=== PATIENT | male | born 1960 | race Caucasian/White ===

== ENCOUNTER 2024-10-02 13:30 | Inpatient (IN) | payer OTHER ==
--- NOTE | 2024-10-02 14:37 | ED ---
General Adult HPI - General Chief complaint: Shortness of Breath Stated complaint: SOB Time Seen by Provider: 10/02/24 14:04 Source: EMS Mode of arrival: EMS - History of Present Illness Initial comments: 64-year-old male presenting with chief complaint of cough and difficulty breat dora. Ongoing for the last 5 days. Patient comes from [facility], receiving treatment for alcohol use disorder last drink was on September 15. Patient reports that quite a few people at the facility are getting sick recently. He is a pack per day smoker. He denies chest pain, lower extremity swelling, nausea, vomiting, abdominal pain. Patient was hypoxic on room air started on 3 L nasal cannula, he does not normally wear oxygen. He denies any history of COPD or asthma. - Related Data Home Medications Medication Instructions Recorded Confirmed Acetaminophen [Tylenol] 650 mg PO Q4H PRN MDD 2,600mg 10/02/24 10/02/24 Calcium Phos/D3/Magnesium/Zinc 1 tab PO TID PRN 10/02/24 10/02/24 [Zhkhugf-Igr-Gdxd-Vitamin D3] Chlorpheniramine Maleate 4 mg PO Q4H PRN 10/02/24 10/02/24 [Chlor-Trimeton] Docusate [Colace] 100 mg PO BID PRN 10/02/24 10/02/24 Folic Acid 1 mg PO DAILY PRN 10/02/24 10/02/24 Ibuprofen [Motrin Ib] 600 mg PO Q6H PRN 10/02/24 10/02/24 Loperamide HCl [Imodium A-D] 4 mg PO QID PRN MDD 16mg 10/02/24 10/02/24 Magnesium Hydroxide [Milk of 2,400 mg PO BID PRN 10/02/24 10/02/24 Magnesia] Melatonin 10 mg PO HS 10/02/24 10/02/24 Mirtazapine 15 mg PO HS 10/02/24 10/02/24 Multivitamins, Thera [Multivitamin 1 tab PO DAILY 10/02/24 10/02/24 (formulary)] Mylanta Regular Strength 30 ml PO Q4H PRN 10/02/24 10/02/24 Thiamine HCl [Vitamin B-1] 100 mg PO DAILY 10/02/24 10/02/24 busPIRone HCl [Buspar] 10 mg PO TID 10/02/24 10/02/24 cloNIDine HCL [Catapres] 0.1 - 0.3 mg PO Q4H PRN 10/02/24 10/02/24 guaiFENesin SYRUP 100MG/5ML 200 mg PO Q4H PRN 10/02/24 10/02/24 [Robitussin] ondansetron HCL [Zofran] 8 mg PO Q6H PRN 10/02/24 10/02/24 Allergies Allergy/AdvReac Type Severity Reaction Status Date / Time No Known Allergies Allergy Verified 10/02/24 17:27 Review of Systems ROS Statement: Those systems with pertinent positive or pertinent negative responses have been documented in the HPI. ROS Other: All systems not noted in ROS Statement are negative. Past Medical History Past Surgical History: Bladder Surgery Additional Past Surgical History / Comment(s): Bladder Cancer 2019, hernia repair (inguinal) surgery long ago. Past Psychological History: No Psychological Hx Reported Smoking Status: Current every day smoker Past Alcohol Use History: Heavy General Exam Limitations: no limitations General appearance: alert, in no apparent distress Head exam: Present: atraumatic, normocephalic, normal inspection Eye exam: Present: normal appearance, EOMI Neck exam: Present: normal inspection. Absent: meningismus Respiratory exam: Present: wheezes. Absent: respiratory distress, rales, rhonchi, stridor Cardiovascular Exam: Present: regular rate, normal rhythm, normal heart sounds. Absent: systolic murmur, diastolic murmur, rubs, gallop, clicks Extremities exam: Absent: pedal edema Neurological exam: Present: alert, oriented X3 Psychiatric exam: Present: normal affect, normal mood Skin exam: Present: warm, dry, normal color Course Vital Signs 10/02/24 10/02/24 10/02/24 13:51 14:00 15:03 Temperature 99.1 F Pulse Rate 68 Respiratory 20 18 Rate Blood Pressure 128/72 O2 Sat by Pulse 86 L 91 L Oximetry 10/02/24 10/02/24 10/02/24 15:51 16:01 16:05 Temperature 98.5 F Pulse Rate 72 72 69 Respiratory 19 Rate Blood Pressure 144/71 O2 Sat by Pulse 91 L Oximetry 10/02/24 10/02/24 18:40 22:21 Temperature 97.8 F Pulse Rate 87 98 Respiratory 18 18 Rate Blood Pressure 132/81 144/95 O2 Sat by Pulse 92 L 98 Oximetry Medical Decision Making - Medical Decision Making Was pt. sent in by a medical professional or institution ([facility]ynum, [facility], urgent care, hospital, or [facility]...) When possible be specific @ -No Did you speak to anyone other than the patient for history (EMS, parent, family, police, friend...)? What history was obtained from this source @ -No Did you review nursing and triage notes (agree or disagree)? Why? @ -I reviewed and agree with nursing and triage notes Were old charts reviewed (outside hosp., previous admission, EMS record, old EKG, old radiological studies, urgent care reports/EKG's, [facility] records)? Report findings @ -No old charts were reviewed Differential Diagnosis (chest pain, altered mental status, abdominal pain women, abdominal pain men, vaginal bleeding, weakness, fever, dyspnea, syncope, headache, dizziness, GI bleed, back pain, seizure, CVA, palpatations, mental health, musculoskeletal)? @ -MDM Differential Dyspnea: Coronary syndrome, arrhythmia, tamponade, asthma, COPD, pulmonary embolism, pneumonia, pneumothorax, pulmonary effusion, anaphylaxis, diabetic ketoacidosis, flailed chest, pulmonary contusion, diaphragmatic rupture, anemia, neuromuscular… this is not meant to be an all-inclusive list. EKG interpreted by me (3pts min.). @ -EKG shows sinus rhythm with sinus arrhythmia ventricular rate 72. AZ interval 155. QRS 90. QT 405. QTc 430 X-rays interpreted by me (1pt min.). @ -Chest x-ray read shows reticular nodular infiltrates within the infrahilar regions bilaterally may reflect developing pneumonia. Correlate clinically. CT interpreted by me (1pt min.). @ -None done U/S interpreted by me (1pt. min.). @ -None done What testing was considered but not performed or refused? (CT, X-rays, U/S, labs)? Why? @ -None What meds were considered but not given or refused? Why? @ -None Did you discuss the management of the patient with other professionals (professionals i.e. CHRISTIANO Bynum, [facility], lab, RT, psych nurse, social worker psychiatric, court commissioner, teacher, juvenile correctional officer, skilled nursing case manager)? Give summary @ -Spoke with the [facility] provider on-call who accepted admission Was smoking cessation discussed for >3mins.? @ -No Was critical care preformed (if so, how long)? @ -No Were there social determinants of health that impacted care today? How? (Homelessness, low income, unemployed, alcoholism, drug addiction, transportation, low edu. Level, literacy, decrease access to med. care, shelter, rehab)? @ -No Was there de-escalation of care discussed even if they declined (Discuss DNR or withdrawal of care, Hospice)? DNR status @ -No What co-morbidities impacted this encounter? (DM, HTN, Smoking, COPD, CAD, Cancer, CVA, ARF, Chemo, Hep., AIDS, mental health diagnosis, sleep apnea, mor bid obesity)? @ smoking Was patient admitted / discharged? Hospital course, mention meds given and route, prescriptions, significant lab abnormalities, going to OR and other pertinent info. @ -64-year-old male presenting from [facility] with chief complaint of difficulty breathing. Patient is a pack per day smoker. Currently receiving treatment for alcohol use disorder. On exam diffuse wheezes are heard on auscultation. Patient is hypoxic on room air and placed on 3 L via nasal cannula. Lab work shows no leukocytosis or anemia. Sodium 128. Chest x-ray positive for pneumonia. Troponin 0.038. Patient is having no chest pain. Likely secondary to infection and hypoxia. Patient is treated with azithromycin and Rocephin. Patient was also treated with DuoNebs and Solu-Medrol. Patient is educated on today's findings. He will require admission for pneumonia and COPD exacerbation. Follow-up with PCP. Report back to ER with any new or worsening symptoms. Discussed return parameters and answered all questions. Patient conveyed verbal understanding and agreed to the plan. I discussed this case in detail with my attending Dr. Yu Undiagnosed new problem with uncertain prognosis? @ -No Drug Therapy requiring intensive monitoring for toxicity (Heparin, Nitro, Insulin, Cardizem)? @ -No Were any procedures done? @ -No Diagnosis/symptom? @ -Pneumonia, COPD Acute, or Chronic, or Acute on Chronic? @ -Acute Uncomplicated (without systemic symptoms) or Complicated (systemic symptoms)? @ -Complicated Side effects of treatment? @ -No Exacerbation, Progression, or Severe Exacerbation? @ -No Poses a threat to life or bodily function? How? (Chest pain, USA, GA, pneumonia, PE, COPD, DKA, ARF, appy, cholecystitis, CVA, Diverticulitis, Homicidal, Suicidal, threat to staff... and all critical care pts) @ -Yes - Lab Data Result diagrams: 10/05/24 04:16 10/05/24 04:16 Lab Results 10/02/24 10/02/24 10/02/24 Range/Units 14:56 14:56 14:56 WBC 9.05 (4.50-10.00) 10*3/uL RBC 3.79 L (4.40-5.60) 10*6/uL Hgb 13.1 (13.0-17.0) g/dL Hct 37.4 L (39.6-50.0) % MCV 98.7 H (80.0-97.0) fL MCH 34.6 H (27.0-32.0) pg MCHC 35.0 (32.0-37.0) g/dL Plt Count [facility] MPV 8.7 L (9.5-12.2) fL Immature Gran % (Auto) 0.4 % Neutrophils % (Manual) 67 % Lymphocytes % (Manual) 26 % Monocytes % (Manual) 7 % Immature Gran # 0.04 (0.00-0.04) 10*3/uL Neutrophils # (Manual) 6.06 (1.3-7.7) k/uL Lymphocytes # (Manual) 2.35 (1.0-4.8) k/uL Monocytes # (Manual) 0.63 (0-1.0) k/uL Nucleated RBCs 0 (0-0) /100 WBC Manual Slide Review Performed Toxic Vacuolation Present PT 10.5 (10.0-12.5) sec INR 0.9 (<1.2) APTT 26.8 (22.0-30.0) sec Sodium 128 L (137-145) mmol/L Potassium 4.1 (3.5-5.1) mmol/L Chloride 93 L (98-107) mmol/L Carbon Dioxide 28 (22-30) mmol/L Anion Gap 7 mmol/L BUN 16 (9-20) mg/dL Creatinine 0.70 (0.66-1.25) mg/dL Est GFR (CKD-EPI)AfAm >90 (>60 ml/min/1.73 sqM) Est GFR (CKD-EPI)NonAf >90 (>60 ml/min/1.73 sqM) Glucose 108 H (74-99) mg/dL Calcium 8.6 (8.4-10.2) mg/dL Magnesium 2.0 (1.6-2.3) mg/dL Total Bilirubin 0.6 (0.2-1.3) mg/dL AST 35 (17-59) U/L ALT 36 (4-49) U/L Alkaline Phosphatase 81 (38-126) U/L Troponin I (0.000-0.034) ng/mL Total Protein 6.1 L (6.3-8.2) g/dL Albumin 3.5 (3.5-5.0) g/dL 10/02/24 10/02/24 Range/Units 14:56 17:53 WBC (4.50-10.00) 10*3/uL RBC (4.40-5.60) 10*6/uL Hgb (13.0-17.0) g/dL Hct (39.6-50.0) % MCV (80.0-97.0) fL MCH (27.0-32.0) pg MCHC (32.0-37.0) g/dL Plt Count MPV (9.5-12.2) fL Immature Gran % (Auto) % Neutrophils % (Manual) % Lymphocytes % (Manual) % Monocytes % (Manual) % Immature Gran # (0.00-0.04) 10*3/uL Neutrophils # (Manual) (1.3-7.7) k/uL Lymphocytes # (Manual) (1.0-4.8) k/uL Monocytes # (Manual) (0-1.0) k/uL Nucleated RBCs (0-0) /100 WBC Manual Slide Review Toxic Vacuolation PT (10.0-12.5) sec INR (<1.2) APTT (22.0-30.0) sec Sodium (137-145) mmol/L Potassium (3.5-5.1) mmol/L Chloride (98-107) mmol/L Carbon Dioxide (22-30) mmol/L Anion Gap mmol/L BUN (9-20) mg/dL Creatinine (0.66-1.25) mg/dL Est GFR (CKD-EPI)AfAm (>60 ml/min/1.73 sqM) Est GFR (CKD-EPI)NonAf (>60 ml/min/1.73 sqM) Glucose (74-99) mg/dL Calcium (8.4-10.2) mg/dL Magnesium (1.6-2.3) mg/dL Total Bilirubin (0.2-1.3) mg/dL AST (17-59) U/L ALT (4-49) U/L Alkaline Phosphatase (38-126) U/L Troponin I 0.038 H* 0.023 (0.000-0.034) ng/mL Total Protein (6.3-8.2) g/dL Albumin (3.5-5.0) g/dL Disposition Clinical Impression: Community acquired pneumonia Disposition: ADMITTED IP TO THIS [facility] Condition: Fair Time of Disposition: 16:34
[2024-10-02 15:08] LABS: HCT 37.4 % (39.6-50.0); HGB 13.1 g/dL (13.0-17.0); MCH 34.6 pg (27.0-32.0); MCV 98.7 fL (80.0-97.0); Mean Platelet Volume 8.7 fL (9.5-12.2); RBC 3.79 10*6/uL (4.40-5.60); RDW 13.7 % (11.5-14.5); WBC 9.05 10*3/uL (4.50-10.00)
--- NOTE | 2024-10-02 15:17 | XR ---
EXAMINATION TYPE: XR chest 2V DATE OF EXAM: 10/02/2024 3:12 PM COMPARISON: None. CLINICAL INDICATION: Male, 64 years old with history of difficulty breathing: Shortness of breath TECHNIQUE: XR chest 2V views of the chest are obtained. FINDINGS: Scattered senescent parenchymal changes noted. Hyperinflation compatible with COPD. Reticular nodular infiltrates within the infrahilar regions bilaterally may reflect developing pneumo latanya. Correlate clinically. Heart size is stable. Mediastinal structures are stable and grossly unremarkable. No evidence for hilar prominence. Degenerative changes dorsal spine. Nonacute right-sided rib deformities. IMPRESSION: 1. Reticular nodular infiltrates within the infrahilar regions bilaterally may reflect developing pne umonia. Correlate clinically. [facility], , 10/02/2024 3:14 PM
[2024-10-02 15:24] LABS: ALT 36 U/L (4-49); AST 35 U/L (17-59); African American GFR (CKD) >90 (>60 ml/min/1.73 sqM); Albumin 3.5 g/dL (3.5-5.0); Alkaline Phosphatase 81 U/L (38-126); Anion Gap 7 mmol/L; Blood Urea Nitrogen 16 mg/dL (9-20); Calcium 8.6 mg/dL (8.4-10.2); Carbon Dioxide 28 mmol/L (22-30); Chloride 93 mmol/L (98-107); Glucose 108 mg/dL (74-99); Non-African American GFR(CKD) >90 (>60 ml/min/1.73 sqM); Potassium 4.1 mmol/L (3.5-5.1); Sodium 128 mmol/L (137-145); Total Bilirubin 0.6 mg/dL (0.2-1.3); Total Protein 6.1 g/dL (6.3-8.2)
[2024-10-02 15:39] LABS: INR 0.9 (<1.2); Prothrombin Time 10.5 sec (10.0-12.5)
[2024-10-02 15:40] LABS: Partial Thromboplastin Time 26.8 sec (22.0-30.0)
[2024-10-02] MEDS: methylPREDNISolone SOD SUCCI 125 MG/2 ML VIAL IV STA (15:46)
[2024-10-02] MEDS: cefTRIAXone IN SWFI 1,000 MG/10 ML SYRINGE IVP STA (15:46)
[2024-10-02] MEDS: AZITHROMYCIN 500 MG in SODIUM CHLORIDE 0.9% 250 ML IVPB STA (15:47)
[2024-10-02 15:51] LABS: Lymphocytes # (M) 2.35 k/uL (1.0-4.8); Monocytes # (M) 0.63 k/uL (0-1.0); Neutrophils # (M) 6.06 k/uL (1.3-7.7); Neutrophils % (M) 67 %; Nucleated Red Blood Cells 0 /100 WBC (0-0); Total Cells Counted 100; Toxic Vacuolation Present
[2024-10-02] MEDS: IPRATROPIUM-ALBUTEROL 3 ML NEB INHALATION STA (15:51)
[2024-10-02] MEDS ORDERED: PNEUMONIA PROTOCOL UTILIZED 1 EACH MISC PO PRN (16:27)
[2024-10-02] MEDS ORDERED: ACETAMINOPHEN TAB 325 MG TAB PO PRN (16:27)
[2024-10-02] MEDS: IPRATROPIUM-ALBUTEROL 3 ML NEB INHALATION SCH (21:21)
[2024-10-03] MEDS: IPRATROPIUM-ALBUTEROL 3 ML NEB INHALATION PRN (05:31)
[2024-10-03] MEDS ORDERED: predniSONE 20 MG TAB PO SCH (09:00)
[2024-10-03] MEDS: AZITHROMYCIN 500 MG TAB PO SCH (09:39)
[2024-10-03] MEDS: methylPREDNISolone 4 MG TAB TAPER PO SCH (09:39)
[2024-10-03] MEDS: cefTRIAXone 2 GM in DEXTROSE 5% IN WATER 50 ML IVPB SCH (09:40)
[2024-10-03] MEDS ORDERED: FOLIC ACID 1 MG TAB PO PRN (10:59)
[2024-10-03 12:10] LABS: Influenza B Detected (Not Detectd); RSV Not Detected (Not Detectd)
[2024-10-03 12:11] LABS: Influenza A Not Detected (Not Detectd)
--- NOTE | 2024-10-03 12:23 | P.CNPUL ---
History of Present Illness Consult date: 10/03/24 Requesting physician: Joseph Morris Reason for consult: dyspnea, COPD, pneumonia, abnormal CXR/CT Chief complaint: Shortness of breath, cough, congestion History of present illness: This is a 64-year-old male patient who resides in [place] but was staying at [facility] for alcohol abuse. He had been there about 1-1/2 weeks until he developed increasing shortness of breath cough and congestion and was brought into the emergency room yesterday. He does have a 50-year pack per day smoking history. He also has a history of bladder cancer status post surgery. X-ray reveals reticular nodular infiltrates within the infrahilar regions bilaterally possibly reflecting pneumonia. White count 9.0. Hemoglobin 13.1. Sodium 128. Potassium 4.1. Bicarb 28. BUN 16. Creatinine 0.7. Viral screen positive for influenza B. He is seen today in consultation on the regular medical floor. He is currently sitting up in bed. Awake and alert in no acute distress. Maintaining O2 saturations in the 90s on room air. He has been afebrile. Hemodynamically stable. He does have a loose congested cough. Denies any nausea vomiting or diarrhea. Review of Systems REVIEW OF SYSTEMS: CONSTITUTIONAL: Denies any recent significant weight loss or weight gain. EYES: Denies change in vision. EARS, NOSE, MOUTH, THROAT: Denies headaches, denies sore throat. CARDIOVASCULAR: Denies chest pain, palpitations or syncopal episodes. RESPIRATORY: Positive for shortness of breath, cough, congestion no hemoptysis. GASTROINTESTINAL: Denies change in appetite, denies abdominal pain GENITOURINARY: Denies hematuria, denies infections. MUSKULOSKELETAL: Denies pain, denies swelling. INTEGUMENTARY: Denies rash, denies eczema. NEUROLOGICAL: Denies recent memory loss, no recent seizure activity. PSYCHIATRIC: Denies anxiety, denies depression. HEMATOLOGIC/LYMPHATIC: Denies anemia, denies enlarged lymph nodes. Past Medical History Past Medical History: Cancer Additional Past Medical History / Comment(s): Bladder CA History of Any Multi-Drug Resistant Organisms: None Reported Past Surgical History: Bladder Surgery Additional Past Surgical History / Comment(s): Bladder Cancer 2019, hernia repair (inguinal) surgery long ago. Past Anesthesia/Blood Transfusion Reactions: No Reported Reaction Past Psychological History: No Psychological Hx Reported Smoking Status: Current every day smoker Past Alcohol Use History: Heavy Past Drug Use History: Marijuana Additional Drug Use History / Comment(s): Patient states he will occasionally use a Marijuana Edible. Medications and Allergies Home Medications Medication Instructions Recorded Confirmed Type Acetaminophen [Tylenol] 650 mg PO Q4H PRN MDD 2,600mg 10/02/24 10/02/24 History Calcium Phos/D3/Magnesium/Zinc 1 tab PO TID PRN 10/02/24 10/02/24 History [Wyduymp-Poh-Xftx-Vitamin D3] Chlorpheniramine Maleate 4 mg PO Q4H PRN 10/02/24 10/02/24 History [Chlor-Trimeton] Docusate [Colace] 100 mg PO BID PRN 10/02/24 10/02/24 History Folic Acid 1 mg PO DAILY PRN 10/02/24 10/02/24 History Ibuprofen [Motrin Ib] 600 mg PO Q6H PRN 10/02/24 10/02/24 History Loperamide HCl [Imodium A-D] 4 mg PO QID PRN MDD 16mg 10/02/24 10/02/24 History Magnesium Hydroxide [Milk of 2,400 mg PO BID PRN 10/02/24 10/02/24 History Magnesia] Melatonin 10 mg PO HS 10/02/24 10/02/24 History Mirtazapine 15 mg PO HS 10/02/24 10/02/24 History Multivitamins, Thera [Multivitamin 1 tab PO DAILY 10/02/24 10/02/24 History (formulary)] Mylanta Regular Strength 30 ml PO Q4H PRN 10/02/24 10/02/24 History Thiamine HCl [Vitamin B-1] 100 mg PO DAILY 10/02/24 10/02/24 History busPIRone HCl [Buspar] 10 mg PO TID 10/02/24 10/02/24 History cloNIDine HCL [Catapres] 0.1 - 0.3 mg PO Q4H PRN 10/02/24 10/02/24 History guaiFENesin SYRUP 100MG/5ML 200 mg PO Q4H PRN 10/02/24 10/02/24 History [Robitussin] ondansetron HCL [Zofran] 8 mg PO Q6H PRN 10/02/24 10/02/24 History Allergies Allergy/AdvReac Type Severity Reaction Status Date / Time No Known Allergies Allergy Verified 10/02/24 17:27 Physical Exam Vitals: Vital Signs Temp Pulse Pulse Resp BP BP Pulse Ox 10/03/24 09:01 75 10/03/24 08:51 73 10/03/24 07:00 98.2 F 72 16 145/71 94 L 10/03/24 05:39 74 10/03/24 05:32 66 10/03/24 01:14 97.6 F 66 18 125/71 91 L 10/02/24 22:45 98.4 F 84 19 159/93 92 L 10/02/24 22:21 97.8 F 98 18 144/95 98 10/02/24 18:40 87 18 132/81 92 L 10/02/24 16:05 98.5 F 69 19 144/71 91 L 10/02/24 16:01 72 10/02/24 15:51 72 10/02/24 15:03 68 18 128/72 10/02/24 14:00 91 L 10/02/24 13:51 99.1 F 20 86 L Intake and Output 10/02/24 10/03/24 10/03/24 22:59 06:59 14:59 Intake Total 118 Balance 118 Intake: Oral 118 Other: # Voids 2 Weight 79.379 kg GENERAL EXAM: Alert, 64-year-old male, on room air oxygen, comfortable in no apparent distress. HEAD: Normocephalic. EYES: Normal reaction of pupils, equal size. NOSE: Clear with pink turbinates. THROAT: No erythema or exudates. NECK: No masses, no JVD. CHEST: No chest wall deformity. LUNGS: Equal air entry with few scattered rhonchi, end expiratory wheeze, diminished. CVS: S1 and S2 normal with no audible murmur, regular rhythm. ABDOMEN: No hepatosplenomegaly, normal bowel sounds, no guarding or rigidity. SPINE: No scoliosis or deformity SKIN: No rashes CENTRAL NERVOUS SYSTEM: No focal deficits, tone is normal in all 4 extremities. EXTREMITIES: There is no peripheral edema. No clubbing, no cyanosis. Peripheral pulses are intact. Results - Laboratory Findings CBC and BMP: 10/02/24 14:56 10/02/24 14:56 PT/INR, D-dimer PT 10.5 sec (10.0-12.5) 10/02/24 14:56 INR 0.9 (<1.2) 10/02/24 14:56 Abnormal lab findings: Abnormal Labs 10/02/24 10/02/24 10/02/24 14:56 14:56 14:56 RBC 3.79 L Hct 37.4 L MCV 98.7 H MCH 34.6 H MPV 8.7 L Sodium 128 L Chloride 93 L Glucose 108 H Troponin I 0.038 H* C-Reactive Protein Total Protein 6.1 L Influenza Type B (PCR) 10/03/24 10/03/24 11:08 11:16 RBC Hct MCV MCH MPV Sodium Chloride Glucose Troponin I C-Reactive Protein 25.8 H Total Protein Influenza Type B (PCR) Detected A - Diagnostic Findings Chest x-ray: image reviewed Assessment and Plan Assessment: Acute exacerbation of chronic obstructive pulmonary disease complicated by influenza B Acute influenza B infection Hyponatremia Chronic and ongoing tobacco dependence of 50 years Alcohol abuse, currently residing in [facility], last drink was September 15, 2024 History of bladder cancer status post surgery in 2018 Plan: The patient was seen and evaluated Chest x-ray, labs and medications reviewed Check a procalcitonin Continue ceftriaxone and azithromycin for now Initiate on Tamiflu Initiate Symbicort Initiate a Medrol Dosepak Continue DuoNeb inhalations Continue the CIWA protocol Ativan as needed Plan is to return to [place] post discharge We will continue to follow and make further recommendations based on his clinical status I have personally seen and examined the patient, performed the documentation and the assessment and plan as written. Number of minutes spent on the visit: 20 Dictation was produced using [employer] dictation software. Please excuse any grammatical, word or spelling errors. Time with Patient: Greater than 30
[2024-10-03] MEDS: OSELTAMIVIR 75 MG CAP PO SCH (13:21)
[2024-10-03] MEDS: LORazepam 1 MG TAB PO PRN (13:23)
--- NOTE | 2024-10-03 13:59 | P.HPIM ---
History of Present Illness H&P Date: 10/03/24 History of present illness; patient 64-year-old gentleman with past medical history For Alcohol Abuse Who presented to the ER from [place] for shortness of breath. Patient stated he has been feeling short of breath for the last 5 days. Patient also complaining of cough is productive. Denies any chest pain. There is no complaint of fever or chills. Patient stated a lot of people at [place] have been sick recently. Denies any nausea or vomiting. There is no complaint of orthopnea or PND. Denies anyabdominal pain. Patient denies any complaint of dizziness. There is no complaint of headache. Because of this shortness of breath and cough, patient came to the ER Initial lab work done in the ER showed 9.05, hemoglobin 13.1, sodium 128, potassium 4.1, BUN 16, creatinine 0.70, glucose 108, troponin 0.038 EKG done in the ER showed heart rate of72 , no ST segment elevation or dep ression seen, no T-wave inversions seen. Chest x-ray done in the ER showed reticular nodular infiltrates within the infrahilar regions bilaterally may reflect developing pneumonia Patient admitted to internal medicine service REVIEW OF SYSTEMS: CONSTITUTIONAL: No fever, no malaise, no fatigue. HEENT: No recent visual problems or hearing problems. Denied any sore throat. CARDIOVASCULAR: As mentioned above. PULMONARY: As mentioned above GASTROINTESTINAL: No diarrhea, no nausea, no vomiting, no abdominal pain. NEUROLOGICAL: No headaches, no weakness, no numbness. HEMATOLOGICAL: Denies any bleeding or petechiae. GENITOURINARY: Denies any burning micturition, frequency, or urgency. MUSCULOSKELETAL/RHEUMATOLOGICAL: Denies any joint pain, swelling, or any muscle pain. ENDOCRINE: Denies any polyuria or polydipsia. The rest of the 14-point review of systems is negative. PHYSICAL EXAMINATION: GENERAL: The patient is alert and oriented x3, chronically ill looking HEENT: Pupils are round and equally reacting to light. EOMI. No scleral icterus. No conjunctival pallor. Normocephalic, atraumatic. No pharyngeal erythema. No thyromegaly. CARDIOVASCULAR: S1 and S2 present. No murmurs, rubs, or gallops. PULMONARY: Diminished breath sounds at the bases, no wheezing or crackles. ABDOMEN: Soft, nontender, nondistended, normoactive bowel sounds. No palpable organomegaly. MUSCULOSKELETAL: No joint swelling or deformity. EXTREMITIES: No cyanosis, clubbing, or pedal edema. NEUROLOGICAL: Gross neurological examination did not reveal any focal deficits. SKIN: No rashes. Assessment and plan Acute hypoxic respiratory failure Bacterial pneumonia Hyponatremia History of alcohol abuse Monitor vital signs Monitor CBC Monitor CMP Order blood cultures Ordered IV Rocephin azithromycin Ordered breathing treatments Ordered Pro-Jimmy Resume home meds Consult pulmonary Labs and medication were reviewed.. Continue same treatment. Continue with symptomatic treatment. Resume home medication. Monitor labs and vitals. DVT and GI prophylaxis. Further recommendations as per clinical course of the patient Dictation was produced using [employer] dictation software. please excuse any g rammatical, word or spelling errors. Past Medical History Past Medical History: Cancer Additional Past Medical History / Comment(s): Bladder CA History of Any Multi-Drug Resistant Organisms: None Reported Past Surgical History: Bladder Surgery Additional Past Surgical History / Comment(s): Bladder Cancer 2019, hernia repair (inguinal) surgery long ago. Past Anesthesia/Blood Transfusion Reactions: No Reported Reaction Past Psychological History: No Psychological Hx Reported Smoking Status: Current every day smoker Past Alcohol Use History: Heavy Past Drug Use History: Marijuana Additional Drug Use History / Comment(s): Patient states he will occasionally use a Marijuana Edible. Medications and Allergies Home Medications Medication Instructions Recorded Confirmed Type Acetaminophen [Tylenol] 650 mg PO Q4H PRN MDD 2,600mg 10/02/24 10/02/24 History Calcium Phos/D3/Magnesium/Zinc 1 tab PO TID PRN 10/02/24 10/02/24 History [Rtzgzvu-Bbr-Bjyk-Vitamin D3] Chlorpheniramine Maleate 4 mg PO Q4H PRN 10/02/24 10/02/24 History [Chlor-Trimeton] Docusate [Colace] 100 mg PO BID PRN 10/02/24 10/02/24 History Folic Acid 1 mg PO DAILY PRN 10/02/24 10/02/24 History Ibuprofen [Motrin Ib] 600 mg PO Q6H PRN 10/02/24 10/02/24 History Loperamide HCl [Imodium A-D] 4 mg PO QID PRN MDD 16mg 10/02/24 10/02/24 History Magnesium Hydroxide [Milk of 2,400 mg PO BID PRN 10/02/24 10/02/24 History Magnesia] Melatonin 10 mg PO HS 10/02/24 10/02/24 History Mirtazapine 15 mg PO HS 10/02/24 10/02/24 History Multivitamins, Thera [Multivitamin 1 tab PO DAILY 10/02/24 10/02/24 History (formulary)] Mylanta Regular Strength 30 ml PO Q4H PRN 10/02/24 10/02/24 History Thiamine HCl [Vitamin B-1] 100 mg PO DAILY 10/02/24 10/02/24 History busPIRone HCl [Buspar] 10 mg PO TID 10/02/24 10/02/24 History cloNIDine HCL [Catapres] 0.1 - 0.3 mg PO Q4H PRN 10/02/24 10/02/24 History guaiFENesin SYRUP 100MG/5ML 200 mg PO Q4H PRN 10/02/24 10/02/24 History [Robitussin] ondansetron HCL [Zofran] 8 mg PO Q6H PRN 10/02/24 10/02/24 History Allergies Allergy/AdvReac Type Severity Reaction Status Date / Time No Known Allergies Allergy Verified 10/02/24 17:27 Physical Exam Vitals: Vital Signs Temp Pulse Pulse Resp BP BP Pulse Ox 10/03/24 09:01 75 10/03/24 08:51 73 10/03/24 07:00 98.2 F 72 16 145/71 94 L 10/03/24 05:39 74 10/03/24 05:32 66 10/03/24 01:14 97.6 F 66 18 125/71 91 L 10/02/24 22:45 98.4 F 84 19 159/93 92 L 10/02/24 22:21 97.8 F 98 18 144/95 98 10/02/24 18:40 87 18 132/81 92 L 10/02/24 16:05 98.5 F 69 19 144/71 91 L 10/02/24 16:01 72 10/02/24 15:51 72 10/02/24 15:03 68 18 128/72 10/02/24 14:00 91 L 10/02/24 13:51 99.1 F 20 86 L Intake and Output 10/02/24 10/03/24 10/03/24 22:59 06:59 14:59 Intake Total 118 Balance 118 Intake: Oral 118 Other: # Voids 2 Weight 79.379 kg Results CBC & Chem 7: 10/02/24 14:56 10/02/24 14:56 Labs: Abnormal Lab Results - Last 24 Hours (Table) 10/02/24 10/02/24 10/02/24 Range/Units 14:56 14:56 14:56 RBC 3.79 L (4.40-5.60) 10*6/uL Hct 37.4 L (39.6-50.0) % MCV 98.7 H (80.0-97.0) fL MCH 34.6 H (27.0-32.0) pg MPV 8.7 L (9.5-12.2) fL Sodium 128 L (137-145) mmol/L Chloride 93 L (98-107) mmol/L Glucose 108 H (74-99) mg/dL Troponin I 0.038 H* (0.000-0.034) ng/mL Total Protein 6.1 L (6.3-8.2) g/dL
[2024-10-03] MEDS: busPIRone HCl 10 MG TAB PO SCH (16:02)
[2024-10-03] MEDS: SYMBICORT 160-4.5 MCG INHALER INHALATION SCH (20:20)
[2024-10-03] MEDS: MIRTAZAPINE 15 MG TAB PO SCH (21:46)
[2024-10-03] MEDS: METOPROLOL TARTRATE 25 MG TAB PO SCH (22:44)
[2024-10-04 08:31] LABS: Basophils # (A) 0.03 X 10*3/uL (0.00-0.10); Basophils % (A) 0.2 %; Eosinophils # (A) 0 X 10*3/uL (0.04-0.35); Eosinophils % (A) 0 %; HCT 40.6 % (39.6-50.0); HGB 13.1 g/dL (13.0-17.0); Lymphocytes # (A) 0.79 X 10*3/uL (0.90-5.00); Lymphocytes % (A) 5.6 %; MCH 33.5 pg (27.0-32.0); MCHC 32.3 g/dL (32.0-37.0); MCV 103.8 FL (80.0-97.0); Monocytes # (A) 1.06 X 10*3/uL (0.20-1.00); Monocytes % (A) 7.5 %; NRBC Per 100 WBC 0 X 10*3/uL (0.00-0.01); Neutrophils # (A) 12.15 X 10*3/uL (1.80-7.70); Neutrophils % (A) 86.2 %; Platelet Count 364 X 10*3/uL (140-440); RBC 3.91 X 10*6/uL (4.40-5.60); RDW 14.4 % (11.5-14.5)
[2024-10-04] MEDS: THIAMINE 100 MG TAB PO SCH (09:13)
[2024-10-04] MEDS: predniSONE 20 MG TAB PO SCH (09:13)
[2024-10-04 11:09] LABS: ALT 38 U/L (10-49); AST 34 U/L (14-35); Albumin 3.5 g/dL (3.8-4.9); Albumin/Globulin Ratio 1.52 Ratio (1.60-3.17); Alkaline Phosphatase 92 U/L (41-126); BUN/Creat Ratio 33.43 Ratio (12.00-20.00); Blood Urea Nitrogen 23.4 mg/dL (9.0-27.0); Calcium 8.9 mg/dL (8.7-10.3); Carbon Dioxide 25.2 mmol/L (21.6-31.8); Chloride 102 mmol/L (96-109); Globulin 2.3 g/dL (1.6-3.3); Glucose 157 mg/dL (70-110); Potassium 4.8 mmol/L (3.5-5.5); Sodium 141 mmol/L (135-145); Total Bilirubin <0.2 mg/dL (0.3-1.2); Total Protein 5.8 g/dL (6.2-8.2)
--- NOTE | 2024-10-04 13:47 | P.PN ---
Subjective Progress Note Date: 10/04/24 This is a 64-year-old male patient who resides in [place] but was staying at [facility] for alcohol abuse. He had been there about 1-1/2 weeks until he developed increasing shortness of breath cough and congestion and was brought into the emergency room yesterday. He does have a 50-year pack per day smoking history. He also has a history of bladder cancer status post surgery. X-ray reveals reticular nodular infiltrates within the infrahilar regions bilaterally possibly reflecting pneumonia. White count 9.0. Hemoglobin 13.1. Sodium 128. Potassium 4.1. Bicarb 28. BUN 16. Creatinine 0.7. Viral screen positive for influenza B. He is seen today in consultation on the regular medical floor. He is currently sitting up in bed. Awake and alert in no acute distress. Maintaining O2 saturations in the 90s on room air. He has been afebrile. Hemodynamically stable. He does have a loose congested cough. Denies any nausea vomiting or diarrhea. The patient is seen today October 04, 2024 in follow-up on the regular medical floor. He is currently sitting up in bed. Awake and alert in no acute distress. He continues with a loose congested cough. He is somewhat tremorous today. He is maintaining O2 saturations in the 90s on 3 L/min per nasal cannula. Afebrile. Blood culture pending. White count 14.1. Hemoglobin 13.1. Platelets 364. Sodium 141. Potassium 4.8. Bicarb 25. BUN 23. Creatinine 0.7. Glucose 157. Procalcitonin was 0.64. He remains on ceftriaxone. Continued on DuoNeb inhalations, Symbicort, prednisone taper. He remains on Tamiflu. Continued on Ativan as needed for alcohol withdrawal symptoms. Objective - Vital Signs Vital signs: Vital Signs Temp 98.2 F 10/04/24 07:00 Pulse 72 10/04/24 12:37 Resp 16 10/04/24 12:37 BP 165/88 10/04/24 07:00 Pulse Ox 95 10/04/24 07:00 FiO2 Intake & Output 10/03/24 10/04/24 10/04/24 18:59 06:59 18:59 Intake Total 658 Balance 658 Intake: Oral 658 Other: # Voids 3 3 - Exam GENERAL EXAM: Alert, 64-year-old male, on room air oxygen, in no apparent distress. HEAD: Normocephalic. EYES: Normal reaction of pupils, equal size. NOSE: Clear with pink turbinates. THROAT: No erythema or exudates. NECK: No masses, no JVD. CHEST: No chest wall deformity. LUNGS: Equal air entry with few scattered rhonchi, end expiratory wheeze, dimin ished. CVS: S1 and S2 normal with no audible murmur, regular rhythm. ABDOMEN: No hepatosplenomegaly, normal bowel sounds, no guarding or rigidity. SPINE: No scoliosis or deformity SKIN: No rashes CENTRAL NERVOUS SYSTEM: No focal deficits, tone is normal in all 4 extremities. EXTREMITIES: There is no peripheral edema. No clubbing, no cyanosis. Peripheral pulses are intact. - Labs CBC & Chem 7: 10/04/24 04:19 10/04/24 04:19 Labs: Abnormal Lab Results - Last 24 Hours (Table) 10/03/24 10/04/24 10/04/24 Range/Units 11:16 04:19 04:19 WBC 14.10 H (4.50-10.00) X 10*3/uL RBC 3.91 L (4.40-5.60) X 10*6/uL MCV 103.8 H (80.0-97.0) FL MCH 33.5 H (27.0-32.0) pg MPV 9.0 L (9.5-12.2) FL Immature Gran # 0.07 H (0.00-0.04) X 10*3/uL Neutrophils # 12.15 H (1.80-7.70) X 10*3/uL Lymphocytes # 0.79 L (0.90-5.00) X 10*3/uL Monocytes # 1.06 H (0.20-1.00) X 10*3/uL Eosinophils # 0 L (0.04-0.35) X 10*3/uL Anion Gap 13.80 H (4.00-12.00) mmol/L BUN/Creatinine Ratio 33.43 H (12.00-20.00) Ratio Glucose 157 H (70-110) mg/dL Total Bilirubin <0.2 L (0.3-1.2) mg/dL Total Protein 5.8 L (6.2-8.2) g/dL Albumin 3.5 L (3.8-4.9) g/dL Albumin/Globulin Ratio 1.52 L (1.60-3.17) Ratio Procalcitonin 0.64 H (0.02-0.50) ng/mL Microbiology - Last 24 Hours (Table) 10/02/24 15:57 Blood Culture - Preliminary Blood Assessment and Plan Assessment: Acute exacerbation of chronic obstructive pulmonary disease complicated by influenza B Acute influenza B infection Hyponatremia Chronic and ongoing tobacco dependence of 50 years Alcohol abuse, currently residing in [facility], last drink was September 15, 2024 History of bladder cancer status post surgery in 2019 Plan: The patient was seen and evaluated Labs and medications reviewed Procalcitonin elevated Continue ceftriaxone Completed azithromycin Continue Tamiflu Continue Symbicort Discontinue Medrol Dosepak Initiated prednisone taper Continue DuoNeb inhalations Continue the CIWA protocol Ativan as needed Plan is to return to [place] post discharge We will continue to follow I have personally seen and examined the patient, performed the documentation and the assessment and plan as written. Number of minutes spent on the visit: 10 Dictation was produced using [employer] dictation software. Please excuse any grammatical, word or spelling errors.
[2024-10-04] MEDS: diazePAM 2 MG TAB PO PRN (16:46)
[2024-10-04] MEDS: chlordiazePOXIDE 25 MG CAP PO SCH (18:34)
--- NOTE | 2024-10-04 23:46 | P.PN ---
Subjective Progress Note Date: 10/04/24 History of present illness; patient 64-year-old gentleman with past medical history For Alcohol Abuse Who presented to the ER from [place] for shortness of breath. Patient stated he has been feeling short of breath for the last 5 days. Patient also complaining of cough is productive. Denies any chest pain. There is no complaint of fever or chills. Patient stated a lot of people at [place] have been sick recently. Denies any nausea or vomiting. There is no complaint of orthopnea or PND. Denies anyabdominal pain. Patient denies any complaint of dizziness. There is no complaint of headache. Because of this shortness of breath and cough, patient came to the ER Initial lab work done in the ER showed 9.05, hemoglobin 13.1, sodium 128, potassium 4.1, BUN 16, creatinine 0.70, glucose 108, troponin 0.038 EKG done in the ER showed heart rate of72 , no ST segment elevation or depres zachery seen, no T-wave inversions seen. Chest x-ray done in the ER showed reticular nodular infiltrates within the infrahilar regions bilaterally may reflect developing pneumonia 10/04/2024 Patient is seen in follow-up today from [place] and noted to be positive for influenza B as well as concerns for bacterial pneumonia and hypoxia. Patient is currently maintained on 2 L via nasal cannula and does not normally wear any oxygen. Patient also reports he is a heavy alcoholic and reports he is continuing with his withdrawals. Patient is reporting Ativan is not helping, will add Librium and as needed Valium. Patient maintained on antibiotics and breathing treatments with pulmonary following as well. Will follow-up on repeat labs. Encouraged to increase activity as tolerated. Review of systems: Constitutional: No reports of fatigue, fever, or chills Cardiovascular: No reports of chest pain or palpitations Respiratory: reports of shortness of breath and cough GI: No reports of nausea, vomiting, or diarrhea : No reports of dysuria or retention Neurovascular: reports of weakness shakiness and tremors All medications have been reviewed PHYSICAL EXAMINATION: GENERAL: The patient is alert and oriented x3, chronically ill looking, disheveled, tremors noted on exam HEENT: Pupils are round and equally reacting to light. EOMI. No scleral icterus. No conjunctival pallor. Normocephalic, atraumatic. No pharyngeal erythema. No thyromegaly. CARDIOVASCULAR: S1 and S2 muffled PULMONARY: Diminished breath sounds at the bases, with expiratory wheezing and scattered rhonchi noted ABDOMEN: Soft, thin, nontender, nondistended, normoactive bowel sounds. No palpable organomegaly. MUSCULOSKELETAL: No joint swelling or deformity. EXTREMITIES: No cyanosis, clubbing, or pedal edema. NEUROLOGICAL: Gross neurological examination did not reveal any focal deficits. SKIN: No rashes. Assessment: Acute hypoxic respiratory failure secondary to bacterial pneumonia, right lower lobe Hyponatremia, possibly beer Potomania and poor oral intake Influenza B positive, currently maintained on Tamiflu History of alcohol abuse, currently at [place] Continued ongoing nicotine dependence GI prophylaxis DVT prophylaxis Full code Plan: Patient is continued on breathing treatments along with antibiotics and 2 L of oxygen with pulmonary following recommending wean FiO2 as tolerated Procalcitonin ordered and pending at this time Patient is continued on Tamiflu and will continue Patient reports he is continued on CIWA and Ativan reports he goes on a taper which helps him, will add Librium taper and also as needed Valium Follow-up on repeat labs and monitor electrolytes Encourage increase activity as tolerated Plan will be for returning to [place] once stabilized for continued inpatient alcohol rehab The impression and plan of care has been dictated by [place], Nurse Practitioner as directed. Dr. Ginna MD I have performed a history and examination and MDM of this patient, discussed the same with the dictator, and agree with the dictator's assessment and plan as written ,documented as a scribe. Based on total visit time, I have performed more than 50% of the visit. Objective - Vital Signs Vital signs: Vital Signs Temp 98.2 F 10/04/24 07:00 Pulse 88 10/04/24 09:46 Resp 16 10/04/24 09:46 BP 165/88 10/04/24 07:00 Pulse Ox 95 10/04/24 07:00 FiO2 Intake & Output 10/03/24 10/04/24 10/04/24 18:59 06:59 18:59 Intake Total 658 Balance 658 Intake: Oral 658 Other: # Voids 3 3 - Labs CBC & Chem 7: 10/04/24 04:19 10/04/24 04:19 Labs: Abnormal Lab Results - Last 24 Hours (Table) 10/03/24 10/03/24 10/04/24 Range/Units 11:08 11:16 04:19 WBC 14.10 H (4.50-10.00) X 10*3/uL RBC 3.91 L (4.40-5.60) X 10*6/uL MCV 103.8 H (80.0-97.0) FL MCH 33.5 H (27.0-32.0) pg MPV 9.0 L (9.5-12.2) FL Immature Gran # 0.07 H (0.00-0.04) X 10*3/uL Neutrophils # 12.15 H (1.80-7.70) X 10*3/uL Lymphocytes # 0.79 L (0.90-5.00) X 10*3/uL Monocytes # 1.06 H (0.20-1.00) X 10*3/uL Eosinophils # 0 L (0.04-0.35) X 10*3/uL Anion Gap (4.00-12.00) mmol/L BUN/Creatinine Ratio (12.00-20.00) Ratio Glucose (70-110) mg/dL Total Bilirubin (0.3-1.2) mg/dL C-Reactive Protein 25.8 H (<1.0) mg/dL Total Protein (6.2-8.2) g/dL Albumin (3.8-4.9) g/dL Albumin/Globulin Ratio (1.60-3.17) Ratio Influenza Type B (PCR) Detected A (Not Detectd) 10/04/24 Range/Units 04:19 WBC (4.50-10.00) X 10*3/uL RBC (4.40-5.60) X 10*6/uL MCV (80.0-97.0) FL MCH (27.0-32.0) pg MPV (9.5-12.2) FL Immature Gran # (0.00-0.04) X 10*3/uL Neutrophils # (1.80-7.70) X 10*3/uL Lymphocytes # (0.90-5.00) X 10*3/uL Monocytes # (0.20-1.00) X 10*3/uL Eosinophils # (0.04-0.35) X 10*3/uL Anion Gap 13.80 H (4.00-12.00) mmol/L BUN/Creatinine Ratio 33.43 H (12.00-20.00) Ratio Glucose 157 H (70-110) mg/dL Total Bilirubin <0.2 L (0.3-1.2) mg/dL C-Reactive Protein (<1.0) mg/dL Total Protein 5.8 L (6.2-8.2) g/dL Albumin 3.5 L (3.8-4.9) g/dL Albumin/Globulin Ratio 1.52 L (1.60-3.17) Ratio Influenza Type B (PCR) (Not Detectd) Microbiology - Last 24 Hours (Table) 10/02/24 15:57 Blood Culture - Preliminary Blood
--- NOTE | 2024-10-05 07:16 | XR ---
EXAMINATION TYPE: XR chest 1V portable DATE OF EXAM: 10/05/2024 7:03 AM COMPARISON: 10/02/2024 CLINICAL INDICATION: Male, 64 years old with history of sob, influenza, , FINDINGS: Heart upper limits of normal in size. Increased interstitial densities similar to slightly worsened f rom prior. Old right posterior right-sided rib fracture deformity. No consolidation or pleural effusi on. IMPRESSION: Bilateral interstitial infiltrates similar to slightly worsened from prior. [facility], Workstation: [employer]NELI, 10/05/2024 7:14 AM
[2024-10-05 08:44] LABS: HCT 41.6 % (39.6-50.0); HGB 13.2 g/dL (13.0-17.0); MCH 33.5 pg (27.0-32.0); MCHC 31.7 g/dL (32.0-37.0); MCV 105.6 FL (80.0-97.0); Mean Platelet Volume 9.1 FL (9.5-12.2); NRBC Per 100 WBC 0 X 10*3/uL (0.00-0.01); Platelet Count 364 X 10*3/uL (140-440); RBC 3.94 X 10*6/uL (4.40-5.60); RDW 14.5 % (11.5-14.5); WBC 9.62 X 10*3/uL (4.50-10.00)
[2024-10-05 09:02] LABS: ALT 89 U/L (10-49); AST 81 U/L (14-35); Albumin 3.6 g/dL (3.8-4.9); Albumin/Globulin Ratio 1.57 Ratio (1.60-3.17); Alkaline Phosphatase 107 U/L (41-126); BUN/Creat Ratio 27.43 Ratio (12.00-20.00); Blood Urea Nitrogen 19.2 mg/dL (9.0-27.0); Calcium 8.9 mg/dL (8.7-10.3); Carbon Dioxide 29.2 mmol/L (21.6-31.8); Chloride 100 mmol/L (96-109); Globulin 2.3 g/dL (1.6-3.3); Glucose 168 mg/dL (70-110); Potassium 4.5 mmol/L (3.5-5.5); Sodium 141 mmol/L (135-145); Total Bilirubin <0.2 mg/dL (0.3-1.2); Total Protein 5.9 g/dL (6.2-8.2)
[2024-10-05 09:26] LABS: Basophils # (A) 0.02 X 10*3/uL (0.00-0.10); Basophils % (A) 0.2 %; Eosinophils # (A) 0 X 10*3/uL (0.04-0.35); Eosinophils % (A) 0 %; Lymphocytes % (A) 12.5 %; Monocytes # (A) 0.92 X 10*3/uL (0.20-1.00); Monocytes % (A) 9.6 %; Neutrophils # (A) 7.41 X 10*3/uL (1.80-7.70)
[2024-10-05] MEDS: BENZONATATE 100 MG CAP PO SCH (10:40)
--- NOTE | 2024-10-05 11:59 | P.PN ---
Subjective Progress Note Date: 10/05/24 This is a 64-year-old male patient who resides in [place] but was staying at [facility] for alcohol abuse. He had been there about 1-1/2 weeks until he developed increasing shortness of breath cough and congestion and was brought into the emergency room yesterday. He does have a 50-year pack per day smoking history. He also has a history of bladder cancer status post surgery. X-ray reveals reticular nodular infiltrates within the infrahilar regions bilaterally possibly reflecting pneumonia. White count 9.0. Hemoglobin 13.1. Sodium 128. Potassium 4.1. Bicarb 28. BUN 16. Creatinine 0.7. Viral screen positive for influenza B. He is seen today in consultation on the regular medical floor. He is currently sitting up in bed. Awake and alert in no acute distress. Maintaining O2 saturations in the 90s on room air. He has been afebrile. Hemodynamically stable. He does have a loose congested cough. Denies any nausea vomiting or diarrhea. The patient is seen today October 04, 2024 in follow-up on the regular medical floor. He is currently sitting up in bed. Awake and alert in no acute distress. He continues with a loose congested cough. He is somewhat tremorous today. He is maintaining O2 saturations in the 90s on 3 L/min per nasal cannula. Afebrile. Blood culture pending. White count 14.1. Hemoglobin 13.1. Platelets 364. Sodium 141. Potassium 4.8. Bicarb 25. BUN 23. Creatinine 0.7. Glucose 157. Procalcitonin was 0.64. He remains on ceftriaxone. Continued on DuoNeb inhalations, Symbicort, prednisone taper. He remains on Tamiflu. Continued on Ativan as needed for alcohol withdrawal symptoms. The patient is seen today October 05, 2024 in follow-up on the regular medical floor. He is awake and alert in no acute distress. Sitting up in bed having breakfast. Still with a loose congested cough. No fever or chills. Hemodynamically stable. Maintaining O2 saturation in the 90s on 2 L/min per nasal cannula. White count 9.6. Hemoglobin 13.2. Platelets 364. Sodium 141. Potassium 4.5. Bicarb 29. BUN 19. Creatinine 0.7. Glucose 168. Chest x-ray continues to show basilar infiltrates. He is continued on DuoNeb inhalations, Symbicort, prednisone taper. Remains on Tamiflu. Tessalon Perles have been added for his cough. Remains on antibiotics in the form of ceftriaxone. Objective - Vital Signs Vital signs: Vital Signs Temp 98.2 F 10/05/24 07:00 Pulse 68 10/05/24 10:34 Resp 18 10/05/24 10:34 BP 172/85 10/05/24 07:00 Pulse Ox 94 L 10/05/24 07:00 FiO2 Intake & Output 10/04/24 10/05/24 10/05/24 18:59 06:59 18:59 Other: # Voids 2 2 - Exam GENERAL EXAM: Alert, disheveled 64-year-old male, sitting up in bed, on room air oxygen, in no apparent distress. HEAD: Normocephalic. EYES: Normal reaction of pupils, equal size. NOSE: Clear with pink turbinates. THROAT: No erythema or exudates. NECK: No masses, no JVD. CHEST: No chest wall deformity. LUNGS: Equal air entry with few scattered rhonchi, end expiratory wheeze, diminished. CVS: S1 and S2 normal with no audible murmur, regular rhythm. ABDOMEN: No hepatosplenomegaly, normal bowel sounds, no guarding or rigidity. SPINE: No scoliosis or deformity SKIN: No rashes CENTRAL NERVOUS SYSTEM: No focal deficits, tone is normal in all 4 extremities. EXTREMITIES: There is no peripheral edema. No clubbing, no cyanosis. Peripheral pulses are intact. - Labs CBC & Chem 7: 10/05/24 04:16 10/05/24 04:16 Labs: Abnormal Lab Results - Last 24 Hours (Table) 10/05/24 10/05/24 Range/Units 04:16 04:16 RBC 3.94 L (4.40-5.60) X 10*6/uL MCV 105.6 H (80.0-97.0) FL MCH 33.5 H (27.0-32.0) pg MCHC 31.7 L (32.0-37.0) g/dL MPV 9.1 L (9.5-12.2) FL Immature Gran # 0.07 H (0.00-0.04) X 10*3/uL Eosinophils # 0 L (0.04-0.35) X 10*3/uL BUN/Creatinine Ratio 27.43 H (12.00-20.00) Ratio Glucose 168 H (70-110) mg/dL Total Bilirubin <0.2 L (0.3-1.2) mg/dL AST 81 H (14-35) U/L ALT 89 H (10-49) U/L Total Protein 5.9 L (6.2-8.2) g/dL Albumin 3.6 L (3.8-4.9) g/dL Albumin/Globulin Ratio 1.57 L (1.60-3.17) Ratio Microbiology - Last 24 Hours (Table) 10/02/24 15:57 Blood Culture - Preliminary Blood Assessment and Plan Assessment: Acute exacerbation of chronic obstructive pulmonary disease complicated by influenza B, possible underlying pneumonia Acute influenza B infection Hyponatremia, improved Chronic and ongoing tobacco dependence of 50 years Alcohol abuse, currently residing in [facility], last drink was September 15, 2024 History of bladder cancer status post surgery in 2018 Plan: The patient was seen and evaluated Chest x-ray, labs and medications reviewed Procalcitonin elevated Continue ceftriaxone Completed azithromycin Add Tessalon Perles Continue Tamiflu Continue Symbicort Continue prednisone taper Continue DuoNeb inhalations Continue the CIWA protocol Ativan as needed Plan is to return to [place] post discharge This patient was seen independently by the pulmonary nurse practitioner addressing pulmonary issues I have personally seen and examined the patient, performed the documentation and the assessment and plan as written. Number of minutes spent on the visit: 25 Dictation was produced using [employer] dictation software. Please excuse any grammatical, word or spelling errors.
--- NOTE | 2024-10-06 05:05 | P.PN ---
Subjective Progress Note Date: 10/05/24 History of present illness; patient 64-year-old gentleman with past medical history For Alcohol Abuse Who presented to the ER from [facility] for shortness of breath. Patient stated he has been feeling short of breath for the last 5 days. Patient also complaining of cough is productive. Denies any chest pain. There is no complaint of fever or chills. Patient stated a lot of people at [facility] have been sick recently. Denies any nausea or vomiting. There is no complaint of orthopnea or PND. Denies anyabdominal pain. Patient denies any complaint of dizziness. There is no complaint of headache. Because of this shortness of breath and cough, patient came to the ER Initial lab work done in the ER showed 9.05, hemoglobin 13.1, sodium 128, potassium 4.1, BUN 16, creatinine 0.70, glucose 108, troponin 0.038 EKG done in the ER showed heart rate of72 , no ST segment elevation or depres zachery seen, no T-wave inversions seen. Chest x-ray done in the ER showed reticular nodular infiltrates within the infrahilar regions bilaterally may reflect developing pneumonia 10/04/2024 Patient is seen in follow-up today from [facility] and noted to be positive for influenza B as well as concerns for bacterial pneumonia and hypoxia. Patient is currently maintained on 2 L via nasal cannula and does not normally wear any oxygen. Patient also reports he is a heavy alcoholic and reports he is continuing with his withdrawals. Patient is reporting Ativan is not helping, will add Librium and as needed Valium. Patient maintained on antibiotics and breathing treatments with pulmonary following as well. Will follow-up on repeat labs. Encouraged to increase activity as tolerated. 10/05/2024 Patient seen in follow-up today being followed by pulmonary continues to report shortness of breath and is on 2 L via nasal cannula does not normally wear oxygen outpatient. Discussed with the patient about weaning FiO2 as tolerated and will assess for home O2. Plan is for patient to return to [facility] for continued alcohol rehab and was confirmed patient cannot return if requiring oxygen. Will continue current regimen and also recommend incentive spirometer use at least 10 times every hour while awake. Will taper Librium follow-up from repeat labs. Review of systems: Constitutional: No reports of fatigue, fever, or chills Cardiovascular: No reports of chest pain or palpitations Respiratory: reports of shortness of breath and cough GI: No reports of nausea, vomiting, or diarrhea : No reports of dysuria or retention Neurovascular: reports of weakness shakiness and tremors All medications have been reviewed PHYSICAL EXAMINATION: GENERAL: The patient is alert and oriented x3, chronically ill looking, disheveled, lethargic, easily arousable HEENT: Pupils are round and equally reacting to light. EOMI. No scleral icterus. No conjunctival pallor. Normocephalic, atraumatic. No pharyngeal erythema. No thyromegaly. CARDIOVASCULAR: S1 and S2 muffled PULMONARY: Diminished breath sounds at the bases, with expiratory wheezing and scattered rhonchi noted ABDOMEN: Soft, thin, nontender, nondistended, normoactive bowel sounds. No palpable organomegaly. MUSCULOSKELETAL: No joint swelling or deformity. EXTREMITIES: No cyanosis, clubbing, or pedal edema. NEUROLOGICAL: Gross neurological examination did not reveal any focal deficits. SKIN: No rashes. Assessment: Acute hypoxic respiratory failure secondary to bacterial pneumonia, right lower lobe Hyponatremia, possibly beer Potomania and poor oral intake Influenza B positive, currently maintained on Tamiflu History of alcohol abuse, currently at [facility] Continued ongoing nicotine dependence GI prophylaxis DVT prophylaxis Full code Plan: Patient is continued on breathing treatments along with antibiotics and 2 L of oxygen with pulmonary following recommending wean FiO2 as tolerated Procalcitonin was elevated and patient is continued on ceftriaxone Patient is continued on Tamiflu and will continue Patient reports he is continued on CIWA and Ativan and will continue Librium and taper Follow-up on repeat labs and monitor electrolytes Encourage increase activity as tolerated Plan will be for returning to [facility] once stabilized for continued inpatient alcohol rehab. It was confirmed with [facility] he cannot return with oxygen Discharge planning in 24 hours if oxygenation is improved The impression and plan of care has been dictated by Nelida Beach, Nurse Practitioner as directed. Dr. Ginna MD I have performed a history and examination and MDM of this patient, discussed the same with the dictator, and agree with the dictator's assessment and plan as written ,documented as a scribe. Based on total visit time, I have performed more than 50% of the visit. Objective - Vital Signs Vital signs: Vital Signs Temp 97.5 F L 10/06/24 01:04 Pulse 57 L 10/06/24 01:04 Resp 16 10/06/24 01:04 BP 160/67 10/06/24 01:04 Pulse Ox 93 L 10/06/24 01:04 FiO2 Intake & Output 10/05/24 10/05/24 10/06/24 06:59 18:59 06:59 Intake Total 221 Balance 221 Intake: Oral 221 Other: # Voids 2 2 2 - Labs CBC & Chem 7: 10/05/24 04:16 10/05/24 04:16 Labs: Abnormal Lab Results - Last 24 Hours (Table) 10/05/24 10/05/24 Range/Units 04:16 04:16 RBC 3.94 L (4.40-5.60) X 10*6/uL MCV 105.6 H (80.0-97.0) FL MCH 33.5 H (27.0-32.0) pg MCHC 31.7 L (32.0-37.0) g/dL MPV 9.1 L (9.5-12.2) FL Immature Gran # 0.07 H (0.00-0.04) X 10*3/uL Eosinophils # 0 L (0.04-0.35) X 10*3/uL BUN/Creatinine Ratio 27.43 H (12.00-20.00) Ratio Glucose 168 H (70-110) mg/dL Total Bilirubin <0.2 L (0.3-1.2) mg/dL AST 81 H (14-35) U/L ALT 89 H (10-49) U/L Total Protein 5.9 L (6.2-8.2) g/dL Albumin 3.6 L (3.8-4.9) g/dL Albumin/Globulin Ratio 1.57 L (1.60-3.17) Ratio Microbiology - Last 24 Hours (Table) 10/02/24 15:57 Blood Culture - Preliminary Blood
[2024-10-06 08:18] LABS: Blood Urea Nitrogen 15.3 mg/dL (9.0-27.0); Chloride 102 mmol/L (96-109); Glucose 101 mg/dL (70-110); Potassium 4.6 mmol/L (3.5-5.5); Sodium 141 mmol/L (135-145)
[2024-10-06 08:19] LABS: ALT 77 U/L (10-49); AST 48 U/L (14-35); Albumin 3.6 g/dL (3.8-4.9); Albumin/Globulin Ratio 1.57 Ratio (1.60-3.17); Alkaline Phosphatase 106 U/L (41-126); Calcium 8.8 mg/dL (8.7-10.3); Carbon Dioxide 30.3 mmol/L (21.6-31.8); Globulin 2.3 g/dL (1.6-3.3); Total Bilirubin <0.2 mg/dL (0.3-1.2); Total Protein 5.9 g/dL (6.2-8.2)
[2024-10-06] MEDS: chlordiazePOXIDE 25 MG CAP PO SCH (08:38)
--- NOTE | 2024-10-06 12:12 | P.PN ---
Subjective Progress Note Date: 10/06/24 This is a 64-year-old male patient who resides in [place] but was staying at [facility] for alcohol abuse. He had been there about 1-1/2 weeks until he developed increasing shortness of breath cough and congestion and was brought into the emergency room yesterday. He does have a 50-year pack per day smoking history. He also has a history of bladder cancer status post surgery. X-ray reveals reticular nodular infiltrates within the infrahilar regions bilaterally possibly reflecting pneumonia. White count 9.0. Hemoglobin 13.1. Sodium 128. Potassium 4.1. Bicarb 28. BUN 16. Creatinine 0.7. Viral screen positive for influenza B. He is seen today in consultation on the regular medical floor. He is currently sitting up in bed. Awake and alert in no acute distress. Maintaining O2 saturations in the 90s on room air. He has been afebrile. Hemodynamically stable. He does have a loose congested cough. Denies any nausea vomiting or diarrhea. The patient is seen today October 04, 2024 in follow-up on the regular medical floor. He is currently sitting up in bed. Awake and alert in no acute distress. He continues with a loose congested cough. He is somewhat tremorous today. He is maintaining O2 saturations in the 90s on 3 L/min per nasal cannula. Afebrile. Blood culture pending. White count 14.1. Hemoglobin 13.1. Platelets 364. Sodium 141. Potassium 4.8. Bicarb 25. BUN 23. Creatinine 0.7. Glucose 157. Procalcitonin was 0.64. He remains on ceftriaxone. Continued on DuoNeb inhalations, Symbicort, prednisone taper. He remains on Tamiflu. Continued on Ativan as needed for alcohol withdrawal symptoms. The patient is seen today October 05, 2024 in follow-up on the regular medical floor. He is awake and alert in no acute distress. Sitting up in bed having breakfast. Still with a loose congested cough. No fever or chills. Hemodynamically stable. Maintaining O2 saturation in the 90s on 2 L/min per nasal cannula. White count 9.6. Hemoglobin 13.2. Platelets 364. Sodium 141. Potassium 4.5. Bicarb 29. BUN 19. Creatinine 0.7. Glucose 168. Chest x-ray continues to show basilar infiltrates. He is continued on DuoNeb inhalations, Symbicort, prednisone taper. Remains on Tamiflu. Tessalon Perles have been added for his cough. Remains on antibiotics in the form of ceftriaxone. The patient is seen today October 06, 2024 in follow-up on the regular medical floor. He is currently sitting up in bed having breakfast. Awake and alert in no acute distress. He is a bit less short of breath and less coughing today. He is maintaining good O2 saturation in the 90s on 3 L/min per nasal cannula. He has been afebrile. Hemodynamically stable. Blood culture revealed no growth. Sodium 141. Potassium 4.6. Bicarb 30. BUN 15. Creatinine 0.6. Glucose 101. He is continued on DuoNeb inhalations, Symbicort, prednisone taper. Remains on Tessalon Perles. Completed antibiotics. Objective - Vital Signs Vital signs: Vital Signs Temp 98.5 F 10/06/24 07:20 Pulse 79 10/06/24 09:13 Resp 17 10/06/24 08:00 BP 153/90 10/06/24 07:20 Pulse Ox 97 10/06/24 09:04 FiO2 Intake & Output 10/05/24 10/06/24 10/06/24 18:59 06:59 18:59 Intake Total 221 Balance 221 Intake: Oral 221 Other: # Voids 2 1 - Exam GENERAL EXAM: Alert, tremorous 64-year-old male, sitting up in bed, on 3 L nasal cannula, in no apparent distress. HEAD: Normocephalic. EYES: Normal reaction of pupils, equal size. NOSE: Clear with pink turbinates. THROAT: No erythema or exudates. NECK: No masses, no JVD. CHEST: No chest wall deformity. LUNGS: Equal air entry with few scattered rhonchi, end expiratory wheeze, diminished. CVS: S1 and S2 normal with no audible murmur, regular rhythm. ABDOMEN: No hepatosplenomegaly, normal bowel sounds, no guarding or rigidity. SPINE: No scoliosis or deformity SKIN: No rashes CENTRAL NERVOUS SYSTEM: No focal deficits, tone is normal in all 4 extremities. EXTREMITIES: There is no peripheral edema. No clubbing, no cyanosis. Peripheral pulses are intact. - Labs CBC & Chem 7: 10/05/24 04:16 10/06/24 05:19 Labs: Abnormal Lab Results - Last 24 Hours (Table) 10/06/24 Range/Units 05:19 BUN/Creatinine Ratio 25.50 H (12.00-20.00) Ratio Total Bilirubin <0.2 L (0.3-1.2) mg/dL AST 48 H (14-35) U/L ALT 77 H (10-49) U/L Total Protein 5.9 L (6.2-8.2) g/dL Albumin 3.6 L (3.8-4.9) g/dL Albumin/Globulin Ratio 1.57 L (1.60-3.17) Ratio Microbiology - Last 24 Hours (Table) 10/02/24 15:57 Blood Culture - Preliminary Blood Assessment and Plan Assessment: Acute exacerbation of chronic obstructive pulmonary disease complicated by influenza B, possible underlying pneumonia. Procalcitonin 0.64. Completed ceftriaxone and azithromycin Acute influenza B infection Hyponatremia, improved Chronic and ongoing tobacco dependence of 50 years Alcohol abuse, currently residing in [facility], last drink was September 15, 2024 History of bladder cancer status post surgery in 2019 Plan: The patient was seen and evaluated Labs and medications reviewed Completed antibiotics Continue Tessalon Perles Continue Tamiflu Continue Symbicort Continue prednisone taper Continue DuoNeb inhalations Continue the CIWA protocol Plan is to return to [place] post discharge This patient was seen independently by the pulmonary nurse practitioner addressing pulmonary issues I have personally seen and examined the patient, performed the documentation and the assessment and plan as written. Number of minutes spent on the visit: 24 Dictation was produced using [employer] dictation software. Please excuse any grammatical, word or spelling errors.
[2024-10-07 07:49] VITALS: BP 169/97; TEMP 98.6
[2024-10-07 08:44] VITALS: BMI 23.7
[2024-10-07 08:52] VITALS: PULSE 82
--- NOTE | 2024-10-07 09:18 | P.PN ---
Subjective Progress Note Date: 10/06/24 History of present illness; patient 64-year-old gentleman with past medical history For Alcohol Abuse Who presented to the ER from [facility] for shortness of breath. Patient stated he has been feeling short of breath for the last 5 days. Patient also complaining of cough is productive. Denies any chest pain. There is no complaint of fever or chills. Patient stated a lot of people at [facility] have been sick recently. Denies any nausea or vomiting. There is no complaint of orthopnea or PND. Denies anyabdominal pain. Patient denies any complaint of dizziness. There is no complaint of headache. Because of this shortness of breath and cough, patient came to the ER Initial lab work done in the ER showed 9.05, hemoglobin 13.1, sodium 128, potassium 4.1, BUN 16, creatinine 0.70, glucose 108, troponin 0.038 EKG done in the ER showed heart rate of72 , no ST segment elevation or depres zachery seen, no T-wave inversions seen. Chest x-ray done in the ER showed reticular nodular infiltrates within the infrahilar regions bilaterally may reflect developing pneumonia 10/04/2024 Patient is seen in follow-up today from [facility] and noted to be positive for influenza B as well as concerns for bacterial pneumonia and hypoxia. Patient is currently maintained on 2 L via nasal cannula and does not normally wear any oxygen. Patient also reports he is a heavy alcoholic and reports he is continuing with his withdrawals. Patient is reporting Ativan is not helping, will add Librium and as needed Valium. Patient maintained on antibiotics and breathing treatments with pulmonary following as well. Will follow-up on repeat labs. Encouraged to increase activity as tolerated. 10/05/2024 Patient seen in follow-up today being followed by pulmonary continues to report shortness of breath and is on 2 L via nasal cannula does not normally wear oxygen outpatient. Discussed with the patient about weaning FiO2 as tolerated and will assess for home O2. Plan is for patient to return to [facility] for continued alcohol rehab and was confirmed patient cannot return if requiring oxygen. Will continue current regimen and also recommend incentive spirometer use at least 10 times every hour while awake. Will taper Librium follow-up from repeat labs. 10/06/2024 Patient is seen in follow-up today reports his breathing is somewhat labored and minimally improved today. Patient reports he would like to get up and walk although nursing staff does not want him to. Explained that he has influenza and he is at risks of exposing other people's for this and needs to wear a mask when up and walking. Patient is on 1 to 2 L via nasal cannula and home O2 assessment was performed and patient does qualify for home O2 secondary to COPD. Patient is afebrile with no reports of chest pain or palpitations. Patient reports tolerating diet and is not having any further withdrawals tolerating Librium and will taper even further. Plan is to return to [facility] and patient is adamant he is returning there for continued alcohol rehab. Working with social work and [facility] regarding medical review at [facility] if they can accept the patient with oxygen. Added incentive spirometer and encouraged increase activity as tolerated and will continue to attempt to wean off O2. Review of systems: Constitutional: No reports of fatigue, fever, or chills Cardiovascular: No reports of chest pain or palpitations Respiratory: reports of shortness of breath and cough GI: No reports of nausea, vomiting, or diarrhea : No reports of dysuria or retention Neurovascular: reports of weakness shakiness and tremors All medications have been reviewed PHYSICAL EXAMINATION: GENERAL: The patient is alert and oriented x3, chronically ill looking, disheveled, lethargic, easily arousable HEENT: Pupils are round and equally reacting to light. EOMI. No scleral icterus. No conjunctival pallor. Normocephalic, atraumatic. No pharyngeal erythema. No thyromegaly. CARDIOVASCULAR: S1 and S2 muffled PULMONARY: Diminished breath sounds at the bases, with expiratory wheezing and scattered rhonchi noted ABDOMEN: Soft, thin, nontender, nondistended, normoactive bowel sounds. No palpable organomegaly. MUSCULOSKELETAL: No joint swelling or deformity. EXTREMITIES: No cyanosis, clubbing, or pedal edema. NEUROLOGICAL: Gross neurological examination did not reveal any focal deficits. SKIN: No rashes. Assessment: Acute hypoxic respiratory failure secondary to bacterial pneumonia, right lower lobe Hyponatremia, possibly beer Potomania and poor oral intake Influenza B positive, currently maintained on Tamiflu History of alcohol abuse, currently at [facility] Continued ongoing nicotine dependence GI prophylaxis DVT prophylaxis Full code Plan: Patient is continued on breathing treatments along with antibiotics and 2 L of oxygen with pulmonary following recommending wean FiO2 as tolerated. Patient did perform home O2 and desats less than 88% and will likely require oxygen on discharge to manage COPD. Will continue to monitor overnight as patient reports his breathing is somewhat labored today and have encouraged increase activity as tolerated and discussed with the patient along with nursing staff at length that you must wear a mask due to influenza infection. Patient was also provided an incentive spirometer and encouraged to continue using at least 10 times every ho ur while awake. Social work following working with [facility] and being reviewed by medical review if patient can return with oxygen if necessary. Working to wean FiO2 as tolerated and patient verbalized understanding. Procalcitonin was elevated and patient is continued on ceftriaxone Patient is continued on Tamiflu and will continue Patient reports he is continued on CIWA and Ativan and will continue Librium and taper, will taper even further Follow-up on repeat labs and monitor electrolytes Encourage increase activity as tolerated Plan will be for returning to [facility] once stabilized for continued inpatient alcohol rehab. Social work did contact [facility] again regarding possible needs for oxygen and if he can return and per [facility] medical review needs to talk to their director if this is acceptable. Discharge planning in 24 hours if oxygenation is improved The impression and plan of care has been dictated by Nelida Beach, Nurse Practitioner as directed. Dr. Ginna MD I have performed a history and examination and MDM of this patient, discussed the same with the dictator, and agree with the dictator's assessment and plan as written ,documented as a scribe. Based on total visit time, I have performed more than 50% of the visit. Objective - Vital Signs Vital signs: Vital Signs Temp 98.6 F 10/07/24 07:00 Pulse 82 10/07/24 08:52 Resp 16 10/07/24 07:00 BP 169/97 10/07/24 07:00 Pulse Ox 96 10/07/24 08:42 FiO2 Intake & Output 10/06/24 10/07/24 10/07/24 18:59 06:59 18:59 Intake Total 118 Balance 118 Weight 79.379 kg Intake: Oral 118 Other: # Voids 3 2 - Labs CBC & Chem 7: 10/05/24 04:16 10/06/24 05:19 Labs: Microbiology - Last 24 Hours (Table) 10/06/24 01:35 Gram Stain - Preliminary Sputum
[2024-10-07 09:52] VITALS: RESP 18
--- NOTE | 2024-10-07 10:26 | P.DS ---
Providers Date of admission: 10/02/24 20:17 Expected date of discharge: 10/07/24 Attending physician: Joseph Morris MD Consults: 10/02/24 16:27 Consult Physician Routine Consulting Provider: Alexandra Tamayo Consult Reason/Comments: Pneumonia, hypoxia Do you want consulting provider notified?: Yes Primary care physician: Stated None Hospital Course: Final diagnosis Acute hypoxic respiratory failure secondary to bacterial pneumonia, right lower lobe Hyponatremia, possibly beer Potomania and poor oral intake Influenza B positive, currently maintained on Tamiflu History of alcohol abuse, currently at [facility] Continued ongoing nicotine dependence GI prophylaxis DVT prophylaxis Full code Discharge disposition Patient is being discharged in a stable condition with guarded prognosis to [facility] inpatient alcohol rehab. Patient will follow-up with in the outpatient setting upon discharge. Patient is to continue with hemodialysis as scheduled. Total time taken is greater than 35 minutes. Hospital course History of present illness; patient 64-year-old gentleman with past medical history For Alcohol Abuse Who presented to the ER from [facility] for shor tness of breath. Patient stated he has been feeling short of breath for the last 5 days. Patient also complaining of cough is productive. Denies any chest pain. There is no complaint of fever or chills. Patient stated a lot of people at [facility] have been sick recently. Denies any nausea or vomiting. There is no complaint of orthopnea or PND. Denies anyabdominal pain. Patient denies any complaint of dizziness. There is no complaint of headache. Because of this shortness of breath and cough, patient came to the ER Initial lab work done in the ER showed 9.05, hemoglobin 13.1, sodium 128, potassium 4.1, BUN 16, creatinine 0.70, glucose 108, troponin 0.038 EKG done in the ER showed heart rate of72 , no ST segment elevation or depression seen, no T-wave inversions seen. Chest x-ray done in the ER showed reticular nodular infiltrates within the infrahilar regions bilaterally may reflect developing pneumonia 10/04/2024 Patient is seen in follow-up today from [facility] and noted to be positive for influenza B as well as concerns for bacterial pneumonia and hypoxia. Patient is currently maintained on 2 L via nasal cannula and does not normally wear any oxygen. Patient also reports he is a heavy alcoholic and reports he is continuing with his withdrawals. Patient is reporting Ativan is not helping, will add Librium and as needed Valium. Patient maintained on antibiotics and breathing treatments with pulmonary following as well. Will follow-up on repeat labs. Encouraged to increase activity as tolerated. 10/05/2024 Patient seen in follow-up today being followed by pulmonary continues to report shortness of breath and is on 2 L via nasal cannula does not normally wear oxygen outpatient. Discussed with the patient about weaning FiO2 as tolerated and will assess for home O2. Plan is for patient to return to [facility] for continued alcohol rehab and was confirmed patient cannot return if requiring oxygen. Will continue current regimen and also recommend incentive spirometer use at least 10 times every hour while awake. Will taper Librium follow-up from repeat labs. 10/06/2024 Patient is seen in follow-up today reports his breathing is somewhat labored and minimally improved today. Patient reports he would like to get up and walk although nursing staff does not want him to. Explained that he has influenza and he is at risks of exposing other people's for this and needs to wear a mask when up and walking. Patient is on 1 to 2 L via nasal cannula and home O2 assessment was performed and patient does qualify for home O2 secondary to COPD. Patient is afebrile with no reports of chest pain or palpitations. Patient reports tolerating diet and is not having any further withdrawals tolerating Librium and will taper even further. Plan is to return to [facility] and patient is adamant he is returning there for continued alcohol rehab. Working with social work and [facility] regarding medical review at [facility] if they can accept the patient with oxygen. Added incentive spirometer and encouraged increase activity as tolerated and will continue to attempt to wean off O2. 10/07/2024 Patient did not require oxygen overnight and reassessment was performed regarding home O2 and patient does not qualify for oxygen. Patient would like to return to rehab at [facility] and will continue a short Librium taper along with Tamiflu to complete the course. Patient was evaluated by pulmonary and cleared for discharge recommending outpatient follow-up and will continue on a prednisone taper along with DuoNeb treatments and inhalers. Patient is afebrile with no reports of chest pain or worsening shortness of breath. Encouraged continued incentive spirometer use and reinforced that patient will need to wear mask secondary to influenza B. Currently no reports of chest pain, shortness of breath, or palpitations. Patient is afebrile. No reports of nausea or vomiting and patient is tolerating diet. Patient will be going to [facility] alcohol rehab today. PHYSICAL EXAMINATION: GENERAL: The patient is alert and oriented x3, chronically ill looking, well- developed, thin built, elderly appearing HEENT: Pupils are round and equally reacting to light. EOMI. No scleral icterus. No conjunctival pallor. Normocephalic, atraumatic. No pharyngeal erythema. No thyromegaly. CARDIOVASCULAR: S1 and S2 muffled PULMONARY: Diminished breath sounds at the bases, with faint expiratory wheezing and scattered rhonchi noted ABDOMEN: Soft, thin, nontender, nondistended, normoactive bowel sounds. No palpable organomegaly. MUSCULOSKELETAL: No joint swelling or deformity. EXTREMITIES: No cyanosis, clubbing, or pedal edema. NEUROLOGICAL: Gross neurological examination did not reveal any focal deficits. SKIN: No rashes. Please refer to medication reconciliation sheet for a list of medications. The impression and plan of care has been dictated by [place], Nurse Practitioner as directed. Dr. Ginna MD I have performed a history and examination and MDM of this patient, discussed the same with the dictator, and agree with the dictator's assessment and plan as written ,documented as a scribe. Based on total visit time, I have performed more than 50% of the visit. Patient Condition at Discharge: Fair Plan - Discharge Summary Discharge Rx Participant: No New Discharge Prescriptions: New Ipratropium-Albuterol Nebulize [Duoneb 0.5 mg-3 mg/3 ml Soln] 3 ml INHALATION RT-QID 30 Days #100 each Ipratropium-Albuterol Nebulize [Duoneb 0.5 mg-3 mg/3 ml Soln] 3 ml INHALATION RT-Q2H PRN each PRN Reason: Shortness Of Breath Or Wheezing Metoprolol Tartrate [Lopressor] 25 mg PO BID #60 tab Benzonatate [Tessalon Perles] 200 mg PO TID PRN #20 cap PRN Reason: Cough chlordiazePOXIDE HCl [Librium] 25 mg PO BID 4 Days #6 cap predniSONE See Taper PO DIRECTED #30 tab Budesonide-Formot 160-4.5 Mcg [Symbicort 160-4.5 Mcg Inhaler] 2 puff INHALATION RT-BID 30 Days #1 each Oseltamivir [Tamiflu] 75 mg PO Q12HR 2 Days #4 cap Continue ondansetron HCL [Zofran] 8 mg PO Q6H PRN PRN Reason: Nausea Mirtazapine 15 mg PO HS Magnesium Hydroxide [Milk of Magnesia] 2,400 mg PO BID PRN PRN Reason: Constipation Melatonin 10 mg PO HS Folic Acid 1 mg PO DAILY PRN PRN Reason: withdrawl symptoms Chlorpheniramine Maleate [Chlor-Trimeton] 4 mg PO Q4H PRN PRN Reason: withdrawl symptoms/allergies Acetaminophen [Tylenol] 650 mg PO Q4H PRN MDD 2,600mg PRN Reason: Pain Or Fever > 100.5 Thiamine HCl [Vitamin B-1] 100 mg PO DAILY Mylanta Regular Strength 30 ml PO Q4H PRN PRN Reason: Gi Upset Multivitamins, Thera [Multivitamin (formulary)] 1 tab PO DAILY Ibuprofen [Motrin Ib] 600 mg PO Q6H PRN PRN Reason: Pain Or Fever > 100.5 Loperamide HCl [Imodium A-D] 4 mg PO QID PRN MDD 16mg PRN Reason: Loose Stool guaiFENesin SYRUP 100MG/5ML [Robitussin] 200 mg PO Q4H PRN PRN Reason: Cough Docusate [Colace] 100 mg PO BID PRN PRN Reason: Constipation cloNIDine HCL [Catapres] 0.1 - 0.3 mg PO Q4H PRN PRN Reason: BP >160/100 Calcium Phos/D3/Magnesium/Zinc [Lefyzme-Uik-Jfzf-Vitamin D3] 1 tab PO TID PRN PRN Reason: WITHDRAWL SYMPTOMS busPIRone HCl [Buspar] 10 mg PO TID Discharge Medication List Acetaminophen [Tylenol] 650 mg PO Q4H PRN MDD 2,600mg 10/02/24 [History] Calcium Phos/D3/Magnesium/Zinc [Voakgdu-Xwv-Julb-Vitamin D3] 1 tab PO TID PRN 10/02/24 [History] Chlorpheniramine Maleate [Chlor-Trimeton] 4 mg PO Q4H PRN 10/02/24 [History] Docusate [Colace] 100 mg PO BID PRN 10/02/24 [History] Folic Acid 1 mg PO DAILY PRN 10/02/24 [History] Ibuprofen [Motrin Ib] 600 mg PO Q6H PRN 10/02/24 [History] Loperamide HCl [Imodium A-D] 4 mg PO QID PRN MDD 16mg 10/02/24 [History] Magnesium Hydroxide [Milk of Magnesia] 2,400 mg PO BID PRN 10/02/24 [History] Melatonin 10 mg PO HS 10/02/24 [History] Mirtazapine 15 mg PO HS 10/02/24 [History] Multivitamins, Thera [Multivitamin (formulary)] 1 tab PO DAILY 10/02/24 [History] Mylanta Regular Strength 30 ml PO Q4H PRN 10/02/24 [History] Thiamine HCl [Vitamin B-1] 100 mg PO DAILY 10/02/24 [History] busPIRone HCl [Buspar] 10 mg PO TID 10/02/24 [History] cloNIDine HCL [Catapres] 0.1 - 0.3 mg PO Q4H PRN 10/02/24 [History] guaiFENesin SYRUP 100MG/5ML [Robitussin] 200 mg PO Q4H PRN 10/02/24 [History] ondansetron HCL [Zofran] 8 mg PO Q6H PRN 10/02/24 [History] Benzonatate [Tessalon Perles] 200 mg PO TID PRN #20 cap 10/07/24 [Rx] Budesonide-Formot 160-4.5 Mcg [Symbicort 160-4.5 Mcg Inhaler] 2 puff INHALATION RT-BID 30 Days #1 each 10/07/24 [Rx] Ipratropium-Albuterol Nebulize [Duoneb 0.5 mg-3 mg/3 ml Soln] 3 ml INHALATION RT-Q2H PRN each 10/07/24 [Rx] Ipratropium-Albuterol Nebulize [Duoneb 0.5 mg-3 mg/3 ml Soln] 3 ml INHALATION RT-QID 30 Days #100 each 10/07/24 [Rx] Metoprolol Tartrate [Lopressor] 25 mg PO BID #60 tab 10/07/24 [Rx] Oseltamivir [Tamiflu] 75 mg PO Q12HR 2 Days #4 cap 10/07/24 [Rx] chlordiazePOXIDE HCl [Librium] 25 mg PO BID 4 Days #6 cap 10/07/24 [Rx] predniSONE See Taper PO DIRECTED #30 tab 10/07/24 [Rx] Follow up Appointment(s)/Referral(s): [facility] [NON-STAFF] - As Needed (HOME O2 - PATIENT RESPONSIBLE FOR PAYMENT AFTER 30 DAYS) None,Stated [Primary Care Provider] - 1-2 days [facility] [NON-STAFF] - As Needed Activity/Diet/Wound Care/Special Instructions: Sign up for Medicare Medicare is our country health insurance program for people age 65 or older. Youll sign up for Medicare Part A and Part B through Social Security, so you can make both snf and Medicare choices and withhold any premiums from your benefit payments. If youre under age 65, you may be eligible for Medicare if you have permanent kidney failure or if you receive Disability benefits. Supplemental Security Income (SSI) does not qualify you for Medicare on its own. Even if you receive SSI, you must meet one of the other requirements to qualify. Information you'll need to provide Basic information about yourself >Social Security number >Where you were born (city, state, country) >Health insurance information >Start and end dates for any current group health plans >Start and end dates for any group health plans after age 65 For Part B only >Valid email address Parts of Medicare There are different parts of Medicare to match your medical coverage needs and budget. Parts A and B Youll sign up for Medicare through [employer]. You can sign up for Parts A and B, or Part A only. Part A (hospital insurance) Part A helps pay for inpatient care at: Hospitals [facility] It also covers some outpatient home health care. Part A is free if you worked and paid Medicare taxes for at least 10 years. You may also be eligible because of your current or former spouses work. Part B (medical insurance) Part B helps cover: Services from doctors and other health care providers Outpatient retirement health care Durable medical equipment Some preventive services Patient is returning to [facility] for continued inpatient alcohol rehab Continue with prednisone taper until finished Follow-up with pulmonary outpatient Continue Tamiflu for 2 days to complete the course Follow-up with primary care provider Prescriptions were sent to [facility] Discharge Disposition: OTHER INSTITUTION NOT DEFINED
--- NOTE | 2024-10-07 12:59 | P.PN ---
Subjective Progress Note Date: 10/07/24 This is a 64-year-old male patient who resides in [place] but was staying at [facility] for alcohol abuse. He had been there about 1-1/2 weeks until he developed increasing shortness of breath cough and congestion and was brought into the emergency room yesterday. He does have a 50-year pack per day smoking history. He also has a history of bladder cancer status post surgery. X-ray reveals reticular nodular infiltrates within the infrahilar regions bilaterally possibly reflecting pneumonia. White count 9.0. Hemoglobin 13.1. Sodium 128. Potassium 4.1. Bicarb 28. BUN 16. Creatinine 0.7. Viral screen positive for influenza B. He is seen today in consultation on the regular medical floor. He is currently sitting up in bed. Awake and alert in no acute distress. Maintaining O2 saturations in the 90s on room air. He has been afebrile. Hemodynamically stable. He does have a loose congested cough. Denies any nausea vomiting or diarrhea. The patient is seen today October 04, 2024 in follow-up on the regular medical floor. He is currently sitting up in bed. Awake and alert in no acute distress. He continues with a loose congested cough. He is somewhat tremorous today. He is maintaining O2 saturations in the 90s on 3 L/min per nasal cannula. Afebrile. Blood culture pending. White count 14.1. Hemoglobin 13.1. Platelets 364. Sodium 141. Potassium 4.8. Bicarb 25. BUN 23. Creatinine 0.7. Glucose 157. Procalcitonin was 0.64. He remains on ceftriaxone. Continued on DuoNeb inhalations, Symbicort, prednisone taper. He remains on Tamiflu. Continued on Ativan as needed for alcohol withdrawal symptoms. The patient is seen today October 05, 2024 in follow-up on the regular medical floor. He is awake and alert in no acute distress. Sitting up in bed having breakfast. Still with a loose congested cough. No fever or chills. Hemodynamically stable. Maintaining O2 saturation in the 90s on 2 L/min per nasal cannula. White count 9.6. Hemoglobin 13.2. Platelets 364. Sodium 141. Potassium 4.5. Bicarb 29. BUN 19. Creatinine 0.7. Glucose 168. Chest x-ray continues to show basilar infiltrates. He is continued on DuoNeb inhalations, Symbicort, prednisone taper. Remains on Tamiflu. Tessalon Perles have been added for his cough. Remains on antibiotics in the form of ceftriaxone. The patient is seen today October 06, 2024 in follow-up on the regular medical floor. He is currently sitting up in bed having breakfast. Awake and alert in no acute distress. He is a bit less short of breath and less coughing today. He is maintaining good O2 saturation in the 90s on 3 L/min per nasal cannula. He has been afebrile. Hemodynamically stable. Blood culture revealed no growth. Sodium 141. Potassium 4.6. Bicarb 30. BUN 15. Creatinine 0.6. Glucose 101. He is continued on DuoNeb inhalations, Symbicort, prednisone taper. Remains on Tessalon Perles. Completed antibiotics. The patient is seen today October 07, 2024 in follow-up on the regular medical floor. He is currently sitting up in bed. Awake and alert in no acute distress. Maintaining good O2 saturations in the 90s on room air oxygen. He remains on DuoNeb inhalations, Symbicort, prednisone taper. Continued on Tamiflu. Tessalon Perles for his cough. Blood culture revealed no growth. Sputum culture revealed no growth. Procalcitonin was 0.64. He completed ceftriaxone and azithromycin. No new labs today. Objective - Vital Signs Vital signs: Vital Signs Temp 98.6 F 10/07/24 07:00 Pulse 82 10/07/24 08:52 Resp 18 10/07/24 08:00 BP 169/97 10/07/24 07:00 Pulse Ox 96 10/07/24 08:42 FiO2 Intake & Output 10/06/24 10/07/24 10/07/24 18:59 06:59 18:59 Intake Total 118 Balance 118 Weight 79.379 kg Intake: Oral 118 Other: # Voids 3 2 - Exam GENERAL EXAM: Alert, oriented 64-year-old male, sitting up in bed, on room air oxygen, in no apparent distress. HEAD: Normocephalic. EYES: Normal reaction of pupils, equal size. NOSE: Clear with pink turbinates. THROAT: No erythema or exudates. NECK: No masses, no JVD. CHEST: No chest wall deformity. LUNGS: Equal air entry with few scattered rhonchi, end expiratory wheeze, diminished. CVS: S1 and S2 normal with no audible murmur, regular rhythm. ABDOMEN: No hepatosplenomegaly, normal bowel sounds, no guarding or rigidity. SPINE: No scoliosis or deformity SKIN: No rashes CENTRAL NERVOUS SYSTEM: No focal deficits, tone is normal in all 4 extremities. EXTREMITIES: There is no peripheral edema. No clubbing, no cyanosis. Peripheral pulses are intact. - Labs CBC & Chem 7: 10/05/24 04:16 10/06/24 05:19 Labs: Microbiology - Last 24 Hours (Table) 10/06/24 01:35 Gram Stain - Preliminary Sputum Sputum Culture - Preliminary Assessment and Plan Assessment: Acute exacerbation of chronic obstructive pulmonary disease complicated by influenza B, possible underlying pneumonia. Procalcitonin 0.64. Completed ceftriaxone and azithromycin Acute influenza B infection, remains on Tamiflu Hyponatremia, improved Chronic and ongoing tobacco dependence of 50 years Alcohol abuse, currently residing in [facility], last drink was September 15, 2024 History of bladder cancer status post surgery in 2019 Plan: The patient was seen and evaluated Medications reviewed Stable and on room air Cleared for discharge Completed antibiotics Continue Tamiflu Continue Symbicort Continue prednisone taper Again educated regarding complete smoking cessation Plan is to return to [facility] This patient was seen independently by the pulmonary nurse practitioner addressing pulmonary issues I have personally seen and examined the patient, performed the documentation and the assessment and plan as written. Number of minutes spent on the visit: 23 Dictation was produced using [employer] dictation software. Please excuse any grammatical, word or spelling errors.
== END 2024-10-07 12:18 | disposition other institution (70) | DRG 193 ==
LOC: EC 13:30 → 6NMEDSUR 20:17
PROVIDERS: ADMIT Internal Medicine; ATTEND Internal Medicine
DX: J15.9 Unspecified bacterial pneumonia (principal); J96.01 Acute respiratory failure with hypoxia; J44.0 Chronic obstructive pulmonary disease with (acute) lower respiratory infection; F10.10 Alcohol abuse, uncomplicated; J44.1 Chronic obstructive pulmonary disease with (acute) exacerbation; E87.1 Hypo-osmolality and hyponatremia; J10.08 Influenza due to other identified influenza virus with other specified pneumonia; F17.210 Nicotine dependence, cigarettes, uncomplicated; Z79.899 Other long term (current) drug therapy; Z85.51 Personal history of malignant neoplasm of bladder
CPT/HCPCS: 36415; 71045; 71046; 80053; 83735; 84145; 84484; 85025; 85610; 85730; 86140; 87040; 87070; 87205; 87636; 93005; 94640; 94760; 96365; 96366; 96375; 99285